=== PATIENT | female | born 1960 | race Caucasian/White ===

== ENCOUNTER 2018-03-03 20:32 | Emergency (ER) | payer SELFPAY ==
[~2018-03-03] VITALS: Ht 157.5 cm; Wt 65.8 kg
[2018-03-03] MEDS ORDERED: Norco 5mg/325mg tab ORAL ONE (21:15)
[2018-03-03] MEDS ORDERED: HYDROCODON-ACE1 EA15 ORAL (21:16)
--- NOTE | 2018-03-03 21:16 | Emergency Room Report ---
History of Present Illness General Chief Complaint: Pain Source: Patient Present Illness HPI This is a 57-year-old female with no past medical history. She presents with chief complaint of whole body pain. She said her whole spine hurts. Also complaining of right neck pain. Also with left ankle pain. She had recent MRI done already. Patient has no trauma. Worsen last night. Motrin is not helping. No fever chills but no nausea no vomiting. No incontinence of bowel or urine. Pain is 9 out of 10. Worse with sitting and walking. Allergies: Coded Allergies: NIACIN (Verified Allergy, Unknown, 03/03/18) Patient History Past Medical History: see triage record, old chart reviewed Past Surgical History: other Pertinent Family History: none Social History: Denies: smoking Last Menstrual Period: na Now: No Immunizations: other Reviewed Nursing Documentation: PMH: Agreed; PSxH: Agreed Nursing Documentation-PMH Past Medical History: No History, Except For Hx Cancer: Yes - ovarian Hx Neurological Problems: Yes - fall Review of Systems Eye: Denies: eye pain, blurred vision ENT: Denies: ear pain, nose congestion, throat swelling Respiratory: Denies: cough, shortness of breath Cardiovascular: Denies: chest pain, palpitations Gastrointestinal: Denies: abdominal pain, diarrhea, nausea, vomiting Musculoskeletal: Reports: back pain, joint pain Skin: Denies: rash Neurological: Denies: headache, numbness Endocrine: Denies: increased thirst, increased urine Hematologic/Lymphatic: Denies: easy bruising All Other Systems: negative except mentioned in HPI Physical Exam Vital Signs Date Time Temp Pulse Resp B/P (MAP) Pulse Ox O2 Delivery O2 Flow Rate FiO2 03/03/18 20:47 98.2 83 18 121/85 97 Room Air vitals normal Sp02 EP Interpretation: reviewed, normal General Appearance: well appearing, no apparent distress, alert Head: normocephalic, atraumatic Eyes: bilateral eye PERRL, bilateral eye EOMI ENT: hearing grossly normal, normal pharynx Neck: full range of motion, supple, no meningismus Respiratory: chest non-tender, lungs clear, normal breath sounds Cardiovascular #1: regular rate, rhythm, no murmur Gastrointestinal: normal bowel sounds, non tender, no mass, no organomegaly, no bruit, non-distended Musculoskeletal: back normal, gait/station normal, normal range of motion Psychiatric: mood/affect normal Skin: warm/dry Medical Decision Making Diagnostic Impression: Primary Impression: Arthralgia Qualified Codes: M25.50 - Pain in unspecified joint ER Course Patient presents with exacerbation of chronic pain. No evidence of any fracture or dislocation. No red flags indicate cauda equina syndrome, spinal epidural abscess or neoplastic process. Patient had MRI done a few days ago. This can be follow-up as an outpatient. I see no need for repeat x-rays or imaging. Last Vital Signs Date Time Temp Pulse Resp B/P (MAP) Pulse Ox O2 Delivery O2 Flow Rate FiO2 03/03/18 20:54 98.2 88 18 121/85 97 Room Air Status: improved Disposition: HOME, SELF-CARE Condition: Stable Scripts Hydrocodone/Acetaminophen 5-325* (HYDROCODONE/ACETAMINOPHEN 5-325*) 1 Each Tablet 1 TAB ORAL Q6H PRN for For Pain, #20 TAB 0 Refills Prov: Elvin Black MD 03/03/18 Additional Instructions: Follow-up with your Dr. in 7 days. Return if symptom worsen. Elvin Black MD Mar 03, 2018 21:16
[2018-03-03 21:17] VITALS: BP 123/81
[2018-03-03 21:23] VITALS: BP 121/85
== END 2018-03-03 21:40 | disposition home or self-care (01) ==
LOC: EMR 21:11
DX: M54.9 Dorsalgia, unspecified (principal); M54.2 Cervicalgia; M25.572 Pain in left ankle and joints of left foot; Z85.43 Personal history of malignant neoplasm of ovary
CPT/HCPCS: 99282